=== PATIENT | female | born 1995 | race Hispanic/Latino ===

== ENCOUNTER 2024-04-22 08:39 | Emergency (ER) | payer SELFPAY ==
[2024-04-22 10:11] LABS: Absolute Lymphocytes (CBC) 1.2 K/uL (0.7-4.9); Absolute Monocytes 0.5 K/uL (0.1-1.3); Absolute Neutrophil 5.5 K/uL (1.8-8.0); Basophils % 0.3 % (0-1.3); Eosinophils % 0.2 % (0-4.4); Hematocrit 42.8 % (36.0-45.0); Lymphocytes % 16.7 % (15.3-44.8); MCH 32.1 pg (27.0-35.0); MCHC 32.8 g/dL (32.0-36.0); MCV 98.1 fL (80-100); MPV 8.1 fL (7.6-11.3); Monocytes % 6.5 % (3.3-12.3); Neutrophils % 76.3 % (41.7-73.7); Platelets 284 thou/uL (152-406); RBC Red Blood Cell Count 4.37 M/uL (3.86-4.86); Red Cell Distribution Width 12.4 % (12.1-15.2)
[2024-04-22 10:29] LABS: Albumin 3.6 g/dL (3.4-5.0); Albumin/Globulin Ratio 0.9 (1.1-1.8); Anion Gap 7.4 mEq/L (5.0-15.0); Bilirubin Total 0.3 mg/dL (0.2-1.0); Globulin 3.8 g/dL (2.3-3.5); Potassium 4.4 mEq/L (3.5-5.1); Protein, Total 7.4 g/dL (6.4-8.2)
[2024-04-22 10:49] LABS: Specific Gravity 1.008 (1.005-1.030)
[2024-04-22 10:53] LABS: Specific Gravity 1.008 (1.005-1.030); Sqamous Epithelial <5 /HPF (None Seen); Urine Bacteria >50 /HPF (<20); Urine Bilirubin NEGATIVE (Negative); Urine Blood 1+ (Negative); Urine Clarity Turbid (Clear); Urine Color Colorless (Yellow); Urine Culture Reflex Order NOT NEEDED; Urine Glucose NEGATIVE (Negative); Urine Ketones NEGATIVE (Negative); Urine Microscopic Reflex YN ORDER UMIC; Urine Mucus Slight /HPF (None Seen); Urine Nitrite NEGATIVE (Negative); Urine Protein NEGATIVE (Negative); Urine RBC <5 /HPF (None Seen); Urine Urobilinogen Normal (Normal); Urine WBC <5 /HPF (<5)
--- NOTE | 2024-04-22 11:14 | RAD REPORT ---
EXAMINATION: CT ABDOMEN AND PELVIS WITH CONTRAST CLINICAL INDICATION: Abdominal pain. Right lower quadrant pain TECHNIQUE: CT abdomen and pelvis was performed, after the administration of 100 cc Isovue-300.. Sagit bunny and coronal reconstructions were obtained. One or more of the following dose reduction techniques were used: Automated exposure control, adjustment of the mA and kV according to patient si ze, and iterative reconstruction. Unless otherwise specified, incidental findings do not require dedicated imaging follow-up. [id number]. Oral contrast was not given which limits evaluation of bowel and appendix. COMPARISON: none FINDINGS: Liver, spleen, pancreas, adrenals and kidneys appear unremarkable No evidence of diverticulitis. The appendix is not clearly seen. Several small right lower quadrant mesenteric lymph nodes. No adnexal mass. Bladder wall appears thickened : IMPRESSION: The appendix is not clearly seen. If the patient's clinical symptoms to suggest appendicitis and CT s can with opacification of the terminal ileum/cecum would be recommended. Bladder wall appears thickened. This can be secondary to incomplete distention or inflammation
--- NOTE | 2024-04-22 12:10 | ER ---
Nurse's Notes [facility] Name: Kate Del Rosario Age: 28 yrs Sex: Female : 1995 Arrival Date: 04/22/2024 Time: 08:39 Bed 18 Private MD: Diagnosis: Lower abdominal pain, unspecified;UTI/ Urinary tract infection, site not specified Presentation: 04/22 09:02 Chief complaint: Patient states: R sided abdominal pain with some nausea since Saturday. ll1 Noticed light pink tinge to urine, but denies dysuria. Coronavirus screen: Client denies travel out of the [place] in the last 14 days. At this time, the client does not indicate any symptoms associated with coronavirus-19. Ebola Screen: Patient denies travel to an Ebola-affected area in the 21 days before illness onset. Initial Sepsis Screen: Does the patient meet any 2 criteria? No. Patient's initial sepsis screen is negative. Does the patient have a suspected source of infection? No. Patient's initial sepsis screen is negative. Risk Assessment: Do you want to hurt yourself or someone else? Patient reports no desire to harm self or others. Onset of symptoms was April 19, 2024. 09:02 Method Of Arrival: Ambulatory 1 09:02 Acuity: DWIGHT 3 ll1 Triage Assessment: 09:05 General: Appears in no apparent distress. Behavior is calm, cooperative, appropriate bp for age. Pain: Complains of pain in abdomen. EENT: No deficits noted. Neuro: No deficits noted. Cardiovascular: No deficits noted. Respiratory: No deficits noted. GI: Reports upper abdominal pain. : No signs and/or symptoms were reported regarding the genitourinary system. Derm: No deficits noted. Musculoskeletal: No deficits noted. Historical: - Allergies: 09:02 No Known Allergies; ll1 - Home Meds: 09:02 None [Active]; ll1 - PMHx: 09:02 None; ll1 - PSHx: 09:02 None; ll1 - Immunization history:: Adult Immunizations up to date. - Infectious Disease History:: Denies. - Social history:: Smoking status: Patient denies any tobacco usage or history of. - Family history:: not pertinent. - Hospitalizations: : No recent hospitalization is reported. Screenin:05 [facility] ED Fall Risk Assessment (Adult) History of falling in the last 3 months, bp including since admission No falls in past 3 months (0 pts) Confusion or Disorientation No (0 pts) Intoxicated or Sedated No (0 pts) Impaired Gait No (0 pts) Mobility Assist Device Used No (0 pt) Altered Elimination No (0 pt) Score/Fall Risk Level 0 - 2 = Low Risk. Abuse screen: Denies threats or abuse. Denies injuries from another. Nutritional screening: No deficits noted. Tuberculosis screening: No symptoms or risk factors identified. Assessment: 09:05 General: SEE TRIAGE NOTE. bp 10:49 Reassessment: Patient appears in no apparent distress at this time. Patient is alert, bp oriented x 3, equal unlabored respirations, skin warm/dry/pink. 11:47 Reassessment: Patient appears in no apparent distress at this time. Patient is alert, bp oriented x 3, equal unlabored respirations, skin warm/dry/pink. 12:36 GI: Bowel sounds present X 4 quads. Abd is soft and non tender X 4 quads. bp Vital Signs: 09:02 BP 126 / 93; Pulse 65; Resp 16; Temp 99; Pulse Ox 100% on R/A; Weight 46.54 kg; Height ll1 4 ft. 11 in. ; Pain 3/10; 10:48 BP 129 / 75; Pulse 74; Resp 16; Pulse Ox 99% ; bp 11:47 BP 125 / 105; Pulse 78; Resp 15; Pulse Ox 98% ; bp 12:34 BP 127 / 62; Pulse 61; Resp 16; Pulse Ox 98% ; bp 09:02 Body Mass Index 20.72 (46.54 kg, 149.86 cm) ll1 09:02 Pain Scale: Adult ll1 ED Course: 08:50 Patient arrived in ED. ra3 08:56 Arm band placed on Patient placed in an exam room, on a stretcher. ll1 09:04 Triage completed. ll1 09:05 Patient has correct armband on for positive identification. bp 09:08 Mani Kelly, RN is Primary Nurse. bp 09:13 Bishnu Dickson MD is Attending Physician. rn 10:03 Initial lab(s) drawn, by wv, sent to lab. Inserted saline lock: 20 gauge in right bp antecubital area, using aseptic technique. Blood collected. Flushed with 10 mL NS. 11:02 CT Abd/Pelvis - IV Contrast Only In Process Unspecified. EDMS 12:35 No provider procedures requiring assistance completed. IV discontinued, intact, bp bleeding controlled, No redness/swelling at site. Pressure dressing applied. Administered Medications: 12:15 Drug: Ciprofloxacin PO 500 mg PO once Route: PO; bp 12:27 Follow up: Response: No adverse reaction bp Medication: 09:05 VIS not applicable for this client. bp Outcome: : Discharge ordered by . rn 12:35 Discharged to home ambulatory, with family, bp 12:35 Condition: stable 12:35 Discharge instructions given to patient, Instructed on discharge instructions, follow up and referral plans. medication usage, Demonstrated understanding of instructions, follow-up care, medications, Prescriptions given X 1, 12:36 Patient left the ED. bp Signatures: Dispatcher [employer] EDMS Bishnu Dickson MD MD rn Peltier, Brian, RN RN Patrice Tran RN RN 1 Swati Mendoza ra3
--- NOTE | 2024-04-22 12:10 | EDPHYS ---
Physician Documentation [facility] Name: Kate Del Rosario Age: 28 yrs Sex: Female : 1995 Arrival Date: 04/22/2024 Time: 08:39 Bed 18 Private MD: ED Physician Bishnu Dickson HPI: 04/22 09:51 This 28 yrs old Female presents to ER via Ambulatory with complaints of rn Abdominal Pain. 09:51 The patient presents with abdominal pain right lower quadrant. Onset: The rn symptoms/episode began/occurred 5 day(s) ago. The symptoms do not radiate. Associated signs and symptoms: Pertinent negatives: blood in stools, chest pain, diarrhea, dysuria, fever, vaginal discharge. The symptoms are described as sharp, stabbing. Modifying factors: The symptoms are alleviated by nothing, the symptoms are aggravated by touching the area. Severity of pain: At its worst the pain was mild in the emergency department the pain is unchanged. The patient has not experienced similar symptoms in the past. Historical: - Allergies: 09:02 No Known Allergies; ll1 - Home Meds: 09:02 None [Active]; ll1 - PMHx: 09:02 None; ll1 - PSHx: 09:02 None; ll1 - Immunization history:: Adult Immunizations up to date. - Infectious Disease History:: Denies. - Social history:: Smoking status: Patient denies any tobacco usage or history of. - Family history:: not pertinent. - Hospitalizations: : No recent hospitalization is reported. ROS: 09:51 Constitutional: Negative for fever, chills, and weight loss, Cardiovascular: Negative rn for chest pain, palpitations, and edema, Respiratory: Negative for shortness of breath, cough, wheezing, and pleuritic chest pain, Abdomen/GI: Positive for abdominal pain Back: Negative for injury and pain, : Positive for small amount of blood when wiping after urinating MS/Extremity: Negative for injury and deformity, Neuro: Negative for headache, weakness, numbness, tingling, and seizure, Exam: 09:51 Constitutional: This is a well developed, well nourished patient who is awake, alert, rn and in no acute distress. Cardiovascular: Regular rate and rhythm. No pulse deficits. Respiratory: No increased work of breathing, no retractions or nasal flaring. Abdomen/GI: soft, + mild RLQ tenderness, no rebound or guarding. MS/ Extremity: Pulses equal, no cyanosis. Neuro: Awake and alert, GCS 15 Vital Signs: 09:02 BP 126 / 93; Pulse 65; Resp 16; Temp 99; Pulse Ox 100% on R/A; Weight 46.54 kg; Height ll1 4 ft. 11 in. ; Pain 3/10; 10:48 BP 129 / 75; Pulse 74; Resp 16; Pulse Ox 99% ; bp 11:47 BP 125 / 105; Pulse 78; Resp 15; Pulse Ox 98% ; bp 12:34 BP 127 / 62; Pulse 61; Resp 16; Pulse Ox 98% ; bp 09:02 Body Mass Index 20.72 (46.54 kg, 149.86 cm) ll1 09:02 Pain Scale: Adult ll1 MDM: 09:13 Medical Screening Exam initiated rn 12:08 Differential diagnosis: appendicitis, diverticulitis, gastritis, gastroesophageal rn reflux disease, non-specific abd pain, pancreatitis, Peptic Ulcer Disease, Perf. Duodenal Ulcer, Perf. Gastric Ulcer, Ureterolithiasis, urinary tract infection. Data reviewed: vital signs, nurses notes, lab test result(s), radiologic studies, CT scan, and as a result, I will discharge patient. Counseling: I had a detailed discussion with the patient and/or guardian regarding the historical points, exam findings, and any diagnostic results supporting the discharge/admit diagnosis, lab results, radiology results, the need for outpatient follow up, to return to the emergency department if symptoms worsen or persist or if there are any questions or concerns that arise at home. Special discussion: Based on the patient's Hx, exam, and Dx evaluation, there is no indication for emergent surgery or inpatient Tx. It is understood by the patient/guardian that if the Sx's persist or worsen they need to return immediately for re-evaluation. I discussed with the patient/guardian in detail that at this point there is no indication for admission to the hospital. It is understood, however, that if the symptoms persist or worsen the patient needs to return immediately for re-evaluation. ED course: No acute findings on CT abdomen pelvis other than thickened bladder. Appendix not visualized but radiology states no secondary signs of appendicitis. No white count elevation. Given bacteria in the urine, thickened bladder and report of blood-tinged urine, will treat with antibiotics as UTI. Return precautions given and understood.. 04/22 09:13 Order name: CBC with Diff; Complete Time: 10:58 rn 04/22 09:13 Order name: CMP; Complete Time: 10:58 rn 04/22 09:13 Order name: Lipase; Complete Time: 10:58 rn 04/22 09:13 Order name: Test, Urine; Complete Time: 10:58 rn 04/22 09:13 Order name: Urinalysis w/ reflexes; Complete Time: 10:58 rn 04/22 09:31 Order name: CT Abd/Pelvis - IV Contrast Only; Complete Time: 12:04 rn 04/22 09:13 Order name: IV Saline Lock; Complete Time: 10:03 rn 04/22 09:13 Order name: Labs collected and sent; Complete Time: 10:03 rn 04/22 09:31 Order name: NPO; Complete Time: 09:56 rn Administered Medications: 12:15 Drug: Ciprofloxacin PO 500 mg PO once Route: PO; bp 12:27 Follow up: Response: No adverse reaction bp Disposition Summary: 04/22/24 12:09 Discharge Ordered Notes: Location: Home rn Problem: new rn Symptoms: have improved rn Condition: Stable rn Diagnosis - Lower abdominal pain, unspecified rn - UTI/ Urinary tract infection, site not specified rn Followup: rn - With: Private Physician - When: As needed - Reason: Recheck today's complaints, Re-evaluation by your physician Discharge Instructions: - Discharge Summary Sheet rn - Abdominal Pain, Adult rn - Urinary Tract Infection, Adult rn Forms: - Medication Reconciliation Form rn - Antibiotic operations intern - Prescription Opioid Use rn - Patient Portal Instructions rn - Leadership Thank You Letter rn - Work release form bp - Family Work Release bp Prescriptions: - Cipro 500 mg Oral Tablet - take 1 tablet ORAL route every 12 hours for 7 days; 14 tablet; Refills: 0, rn Product Selection Permitted Signatures: Dispatcher [employer] Bishnu Mcnally MD MD rn Peltier, Brian RN RN Patrice Tran, RN RN ll1 Corrections: (The following items were deleted from the chart) 09:14 09:14 CBC+H.LAB.BRZ ordered. EDMS EDMS 09:14 09:14 COMPREHENSIVE METABOLIC PANEL+C.LAB.BRZ ordered. EDMS EDMS 09:14 09:14 LIPASE+C.LAB.BRZ ordered. EDMS EDMS 09:14 Test, Urine+UC.LAB.BRZ ordered. EDMS EDMS 09:14 Urinalysis+U.LAB.BRZ ordered. EDMS EDMS 09:31 Abdomen Pelvis W Con+CT.RAD.BRZ ordered. EDMS EDMS
[2024-04-22] MEDS ORDERED: CIPROFLOXACIN HCL 500 MG TAB ONE (12:24)
[2024-04-22 12:45] VITALS: TEMP 99
[2024-04-22 12:56] VITALS: O2SAT 98
[2024-04-22 13:02] VITALS: BP 127/62
== END 2024-04-22 12:36 | disposition home or self-care (01) ==
LOC: ER 08:39
DX: N39.0 Urinary tract infection, site not specified (principal)
CPT/HCPCS: 36415; 74177; 80053; 81001; 81025; 83690; 85025; 99284; Q9967